=== PATIENT | female | born 1955 | race Caucasian/White ===

== ENCOUNTER 2024-08-14 19:36 | Emergency (ER) | payer OTHER ==
--- OUTSIDE RECORDS SUMMARY | 2024-08-14 19:38 | XMS REPORT | Continuity of Care Document ---
Author Name Unknown Address [address] [facility] [place] [address] [facility] Address [address] [facility] [address] [place] [address] Care Team Providers [facility] Name Role Phone Tomek_T Attending Clinician Unavailable Tomek_T Admitting Clinician Unavailable Payers Payer Name Policy Type Policy Number Effective Date Expirati on Date Source [facility] (MEDICARE REPLACEMENT/ADVANT AGE - HMO) [id number] 2022 00:00:00 Problems Condition Name Condition Details Condition Category Status Onset Date Resolution Date Last Treatment Date Treating Clinician Comments Source Acute exacerbati on of chronic obstructiv e airways disease Acute Exacerbati on of Chronic Obstructiv e Airways Disease Problem Active - 00:00: 00 [facility] Rupture of breast implant Rupture of Breast Implant Problem [facility] Social History Smoking Status Start Date Stop Date Source Heavy Tobacco [facility]oker [facility] Medications Ordered Medication Name Filled Medication Name Start Date Stop Date Current Medication? Ordering Clinician Indication Dosage Frequency Signature (SIG) Comments Components Source Breztri Aerosphere 160 mcg-9mcg-4. 8mcg/actuat ion HFA aerosol inhaler Inhale 2 puffs twice a day by inhalation route as directed for 30 days. Breztri Aerosphere 160 mcg-9mcg-4. 8mcg/actuat ion HFA aerosol inhaler Inhale 2 puffs twice a day by inhalation route as directed for 30 days. No 2puff(s ) BID Breztri Aerosphere 160 mcg-9mcg-4 .8mcg/actu ation HFA aerosol inhaler Inhale 2 puffs twice a day by inhalation route as directed for 30 days. [facility] Levaquin 750 mg tablet Take 1 tablet every day by oral route as directed for 7 days. Levaquin 750 mg tablet Take 1 tablet every day by oral route as directed for 7 days. No 1 Q1D Levaquin 750 mg tablet Take 1 tablet every day by oral route as directed for 7 days. [facility] prednisone 20 mg tablet Take 1 tablet every day by oral route as directed for 5 days. prednisone 20 mg tablet Take 1 tablet every day by oral route as directed for 5 days. No 1 Q1D prednisone 20 mg tablet Take 1 tablet every day by oral route as directed for 5 days. [facility] Vital Signs Vital Name Observation Time Observation Value Comments S ource BP Diastolic 2022-05-01 00:00:00 86 mm[Hg] [facility] Height 2022-05-01 00:00:00 60 [in_i] [facility] BMI (Body Mass Index) 2022-05-01 00:00:00 24.6 kg/m2 [facility] BP Systolic 2022-05-01 00:00:00 135 mm[Hg] [facility] Body Weight 2022-05-01 00:00:00 2018 [oz_av] [facility] Encounters Start Date/Time End Date/Time Encounter Type Admission Type Attending [facility] Care Facility Care Department Encounter ID Source 2022-06-22 00:00:00 2022-06-22 00:00:00 Outpatient Tomek[facility]T [facility] [id number] [facility] 2022-05-01 00:00:00 2022-05-01 00:00:00 Outpatient [facility]ome[facility]T [facility] [id number] [facility] 2022-05-01 00:00:00 2022-05-01 00:00:00 Outpatient Tomek[facility]T [facility] [id number] [facility] 2022-05-01 00:00:00 2022-05-01 00:00:00 Tian Andrews MD: [address] [place] [address] [address], [place] [address] , Ph. [facility] [id number] [facility] 2022-04-29 00:00:00 2022-04-29 00:00:00 Outpatient Tomek_T [facility] [id number] [facility] 2022-04-29 00:00:00 2022-04-29 00:00:00 Outpatient Tomek_T [facility] [id number] [facility] 2022-04-28 00:00:00 2022-04-28 00:00:00 Outpatient Tomek_T [facility] [id number] [facility]
[2024-08-14] MEDS ORDERED: ONDANSETRON 4 MG/2 ML VIAL ONE (20:01)
[2024-08-14] MEDS ORDERED: FENTANYL CITR 100 MCG/2 ML ONE ×2 (20:01→21:45)
--- NOTE | 2024-08-14 20:52 | RAD REPORT ---
Exam:Forearm Right Clinical history: Right forearm pain Findings: Impacted moderately displaced fracture distal radius. Mildly displaced fracture distal ulna. No dislocation seen
[2024-08-14] MEDS ORDERED: NA CHLORIDE 0.9% 1,000 ML ONE (21:35)
[2024-08-14] MEDS ORDERED: MIDAZOLAM HCL 5 ML ONE (21:46)
[2024-08-14] MEDS ORDERED: ETOMIDATE 20 MG/10 ML VIAL IV ONE (21:46)
--- NOTE | 2024-08-14 23:53 | ER ---
Nurse's Notes [facility] Name: Medhat Hill Age: 69 yrs Sex: Female : 1955 Arrival Date: 08/14/2024 Time: 19:36 Bed 5 Private MD: Diagnosis: Impacted moderately displaced fracture distal radius, mildly displaced fracture distal ulna Presentation: 08/14 19:59 Chief complaint: Patient states: I have vertigo really bad and i fell and tried to kd3 catch myself on my right arm and i broke my wrist. The urgent care gave me Tylenol and sent me here. Coronavirus screen: Vaccine status: Patient reports being unvaccinated. Ebola Screen: No symptoms or risks identified at this time. Initial Sepsis Screen: Does the patient meet any 2 criteria? No. Patient's initial sepsis screen is negative. Does the patient have a suspected source of infection? No. Patient's initial sepsis screen is negative. Risk Assessment: Do you want to hurt yourself or someone else? Patient reports no desire to harm self or others. Onset of symptoms was August 14, 2024. 19:59 Method Of Arrival: Ambulatory kd3 19:59 Acuity: RAEANN 3 kd3 Triage Assessment: 20:00 General: Appears uncomfortable, Behavior is calm, cooperative. Pain: Complains of pain kd3 in right wrist. Musculoskeletal: Bony deformity noted of right wrist. Injury Description: fall. Historical: - Allergies: 20:00 PENICILLINS; kd3 20:00 codeine sulfate; kd3 - Immunization history:: Adult Immunizations up to date. - Infectious Disease History:: Denies. - Social history:: Smoking status: Patient reports the use of cigarette tobacco products, smokes one-half pack cigarettes per day. Screenin:14 [facility] ED Fall Risk Assessment (Adult) History of falling in the last 3 months, cm10 including since admission Yes- single mechanical fall (1 pt) Confusion or Disorientation No (0 pts) Intoxicated or Sedated No (0 pts) Impaired Gait No (0 pts) Mobility Assist Device Used No (0 pt) Altered Elimination No (0 pt) Score/Fall Risk Level 0 - 2 = Low Risk Oriented to surroundings, Maintained a safe environment, Hourly rounding (assess needs \T\ fall precautionary measures) done. Abuse screen: Denies threats or abuse. Denies injuries from another. Nutritional screening: No deficits noted. Tuberculosis screening: No symptoms or risk factors identified. Assessment: 20:13 General: Appears uncomfortable, Behavior is crying. Pain: Complains of pain in right cm10 forearm and right wrist Pain currently is 10 out of 10 on a pain scale. Neuro: No deficits noted. Level of Consciousness is awake, alert, obeys commands, Oriented to person, place, time, situation, Appropriate for age. Respiratory: No deficits noted. Airway is patent Respiratory effort is even, unlabored, Respiratory pattern is regular, symmetrical. Musculoskeletal: Bony deformity noted of right wrist. 21:32 General: Pt and the room has been prepped for conscious sedation. baseline EKG kd3 obtained. suction set up and functioning nasal canula and other rescue oxygen delivery devices are ready. Pt has a working IV access. Fluids are pulled and ready at the bedside. . 08/15 00:34 General: Pt has returned to baseline after procedural sedation. See paper charting. PT kd3 stable for D/C, left with her friend. . Vital Signs: 08/14 19:59 BP 100 / 72; Pulse 77; Resp 16; Temp 98.1(O); Pulse Ox 98% on R/A; Weight 56.7 kg; kd3 Height 5 ft. 4 in. ; 21:08 BP 91 / 64; Pulse 79; Resp 19; Pulse Ox 96% on R/A; kd3 22:08 BP 99 / 69; Pulse 85; Resp 19; Pulse Ox 96% on R/A; kd3 23:00 BP 118 / 72; Pulse 74; Resp 16; Pulse Ox 94% on R/A; kd3 08/15 00:02 BP 111 / 67; Pulse 77; Resp 19; Pulse Ox 94% on R/A; kd3 08/14 19:59 Body Mass Index 21.46 (56.70 kg, 162.56 cm) kd3 ED Course: 08/14 19:37 Patient arrived in ED. jj6 19:44 Betty [facility]olejo [facility]C [facility] kb 19:44 Laina Tucker MD is Attending Physician. kb 19:53 Page Marina, [place] is Primary Nurse. cm10 20:00 Triage completed. kd3 20:00 Arm band placed on left wrist. kd3 20:04 Inserted saline lock: 20 gauge in left forearm, using aseptic technique. Flushed with cm10 10 mL NS. 20:14 Patient has correct armband on for positive identification. Bed in low position. Call cm10 light in reach. Side rails up X2. Pulse ox on. NIBP on. 20:28 Forearm Right XRAY In Process Unspecified. EDMS 21:38 Attending Physician role handed off by Laina Tucker MD sp4 21:38 Manuel Hartman MD is Attending Physician. sp4 23:49 Wrist Right 2 View XRAY In Process Unspecified. EDMS 23:52 Mo Garg MD is Referral Physician. kb 08/15 00:35 Provided Education on: Follow up . kd3 00:35 Assist provider with reduction of right wrist using traction, Set up for procedure. kd3 Performed by Manuel Hartman MD Immobilized with sling, Patient tolerated well. 00:35 IV discontinued, intact, bleeding controlled, No redness/swelling at site. Pressure kd3 dressing applied. Administered Medications: 08/14 20:12 Drug: fentaNYL (PF) IVP 25 mcg IVP once Route: IVP; Site: left forearm; cm10 20:12 Drug: Ondansetron IVP 4 mg IVP once; over 2 minutes Route: IVP; Site: left forearm; cm10 21:49 Drug: fentaNYL (PF) IVP 25 mcg IVP once Route: IVP; Site: left forearm; kd3 23:30 Drug: Etomidate IVP 10 mg IVP once Route: IVP; Site: left forearm; kd3 23:31 Drug: Midazolam IVP or IV 5 mg IVP once Route: IVP; Site: left forearm; kd3 23:50 Drug: fentaNYL (PF) IVP 25 mcg IVP once Route: IVP; Site: left forearm; kd3 Medication: 20:14 VIS not applicable for this client. cm10 Outcome: 23:52 Discharge ordered by . erica 08/15 00:35 Discharged to home via wheelchair, with friend, kd3 Condition: stable Discharge instructions given to patient, friend, Instructed on discharge instructions, follow up and referral plans. medication usage, Demonstrated understanding of instructions, follow-up care, medications, Prescriptions given X 2, 00:36 Patient left the ED. kd3 Signatures: Dispatcher [employer] EDMS Betty Marmolejo [employer]IC[employer]-C SPR[employer]ER INSE[employer]-Ckb Leslie Sun jj6 Angelica Cabrera, RN RN kd3 Manuel Hartman MD MD sp4 Page Marina RN RN cm10 Corrections: (The following items were deleted from the chart) 08/14 23:53 23:53 fentaNYL (PF) IVP 25 mcg IVP in left forearm kd3 kd3
--- NOTE | 2024-08-14 23:53 | EDPHYS ---
Physician Documentation [facility] Name: Medhat Hill Age: 69 yrs Sex: Female : 1955 Arrival Date: 08/14/2024 Time: 19:36 Bed 5 Private MD: ED Physician Manuel Hratman HPI: 08/14 20:06 This 69 yrs old Female presents to ER via Ambulatory with complaints of Wrist Injury. kb 20:06 Pt is a 69 year old female who presents for right wrist pain after falling onto kb outstretched hand. States she has vertigo and it caused her to fall. Reports the vertigo is something she has dealt with for a long time and it is normal for her. Denies any other injuries. . Historical: - Allergies: 20:00 PENICILLINS; kd3 20:00 codeine sulfate; kd3 - Immunization history:: Adult Immunizations up to date. - Infectious Disease History:: Denies. - Social history:: Smoking status: Patient reports the use of cigarette tobacco products, smokes one-half pack cigarettes per day. ROS: 20:08 Constitutional: As per HPI kb Exam: 20:08 Constitutional: This is a well developed, well nourished patient who is awake, alert, kb and in no acute distress. Head/Face: Normocephalic, atraumatic. ENT: Moist Mucous membranes Cardiovascular: Regular rate Respiratory: Respirations even and unlabored. No increased work of breathing. Talking in full sentences Skin: Warm, dry with normal turgor. Normal color. Neuro: Awake and alert, GCS 15, oriented to person, place, time, and situation. 20:08 Musculoskeletal/extremity: Extremities: grossly normal except: noted in the right forearm: decreased ROM, deformity, pain, swelling, tenderness, ROM: limited active range of motion, limited passive range of motion, limited active range of motion due to pain, limited passive range of motion due to pain, Circulation is intact in all extremities. Sensation intact. Vital Signs: 19:59 BP 100 / 72; Pulse 77; Resp 16; Temp 98.1(O); Pulse Ox 98% on R/A; Weight 56.7 kg; kd3 Height 5 ft. 4 in. ; 21:08 BP 91 / 64; Pulse 79; Resp 19; Pulse Ox 96% on R/A; kd3 22:08 BP 99 / 69; Pulse 85; Resp 19; Pulse Ox 96% on R/A; kd3 23:00 BP 118 / 72; Pulse 74; Resp 16; Pulse Ox 94% on R/A; kd3 08/15 00:02 BP 111 / 67; Pulse 77; Resp 19; Pulse Ox 94% on R/A; kd3 08/14 19:59 Body Mass Index 21.46 (56.70 kg, 162.56 cm) 3 MDM: 08/14 19:45 Medical Screening Exam initiated kb 20:09 Differential diagnosis: dislocation, closed fracture. Data reviewed: vital signs, kb nurses notes. 22:53 Management of patient was discussed with the following: Dr Calhoun, who will perform kb conscious sedation and reduction . 23:52 Historians other than the Patient: Family Member: family. Counseling: I had a detailed kb discussion with the patient and/or guardian regarding the historical points, exam findings, and any diagnostic results supporting the discharge/admit diagnosis, radiology results, the need for outpatient follow up, a orthopedic surgeon, to return to the emergency department if symptoms worsen or persist or if there are any questions or concerns that arise at home. 23:53 Independent interpretation of the following test(s) in the Emergency Department X-Ray: kb My interpretation is displaced fracture of ulna and radius. 23:54 Independent interpretation of the following test(s) in the Emergency Department X-Ray: kb My interpretation is repeat xray shows improved alignment. 08/14 19:54 Order name: Forearm Right XRAY; Complete Time: 20:56 kb 08/14 23:34 Order name: Wrist Right 2 View XRAY [facility] 08/14 19:54 Order name: IV Start; Complete Time: 20:04 kb 08/14 21:39 Order name: Moderate Sedation; Complete Time: 23:53 sp4 08/14 21:39 Order name: Splint; Complete Time: 23:54 sp4 08/14 23:51 Order name: Sugar Tong Forearm Splint; Complete Time: 23:53 kb 08/14 23:51 Order name: Sling; Complete Time: 00:01 kb Administered Medications: 20:12 Drug: fentaNYL (PF) IVP 25 mcg IVP once Route: IVP; Site: left forearm; cm10 20:12 Drug: Ondansetron IVP 4 mg IVP once; over 2 minutes Route: IVP; Site: left forearm; cm10 21:49 Drug: fentaNYL (PF) IVP 25 mcg IVP once Route: IVP; Site: left forearm; kd3 23:30 Drug: Etomidate IVP 10 mg IVP once Route: IVP; Site: left forearm; kd3 23:31 Drug: Midazolam IVP or IV 5 mg IVP once Route: IVP; Site: left forearm; kd3 23:50 Drug: fentaNYL (PF) IVP 25 mcg IVP once Route: IVP; Site: left forearm; kd3 Disposition: 08/15 20:20 Co-signature as Attending Physician, Manuel Hartman MD I agree with the assessment sp4 and plan of care. I reviewed the patient's care provided by the Advanced Practice Provider and agree with the diagnosis and treatment plan. Disposition Summary: 08/14/24 23:52 Discharge Ordered Notes: Location: Home kb Condition: Stable kb Diagnosis - Impacted moderately displaced fracture distal radius, mildly displaced fracture kb distal ulna Followup: kb - With: Emergency Department - When: As needed - Reason: Worsening of condition Followup: kb - With: Private Physician - When: 2 - 3 days - Reason: Recheck today's complaints, Continuance of care, Re-evaluation by your physician Followup: kb - With: Mo Garg MD - When: 2 - 3 days - Reason: Recheck today's complaints Discharge Instructions: - Discharge Summary Sheet kb - Radial Fracture kb - Ulnar Fracture kb Forms: - Medication Reconciliation Form kb - Antibiotic Education kb - Prescription Opioid Use kb - Patient Portal Instructions kb - Leadership Thank You Letter kb Prescriptions: - Cyclobenzaprine 10 mg Oral tablet - take 1 tablet ORAL route every 8 hours As needed; 21 tablet; Refills: 0, kb Product Selection Permitted - Diclofenac Sodium 75 mg Oral tablet, delayed release (enteric coated) - take 1 tablet ORAL route 2 times per day As needed; 30 tablet; Refills: 0, kb Product Selection Permitted Signatures: Dispatcher [employer] Betty Adan FNP-C FNP-Ckb Doucette, Kyli RN RN kd3 Manuel Hartman MD MD sp4 Page Marina RN RN cm10 Corrections: (The following items were deleted from the chart) 08/14 23:34 23:34 Wrist Right 2 View+[email or web address] ordered. EDMS EDMS
[2024-08-15 00:54] VITALS: TEMP 98.1
[2024-08-15 01:06] VITALS: O2SAT 94
[2024-08-15 01:08] VITALS: BP 111/67
--- NOTE | 2024-08-15 04:43 | RAD REPORT ---
CLINICAL HISTORY: After reduction. COMPARISON: None. TECHNIQUE: XR WRIST 1-2 VIEWS RIGHT 08/14/2024 11:34 PM CDT FINDINGS: There are minimally displaced fractures of the distal metaphyses of the ulna and radius. Joint spaces are preserved. There is moderate distal forearm soft tissue swelling. IMPRESSION: Distal forearm fractures. Electronically signed by: Kwesi Vasquez MD 08/15/2024 12:29 AM CDT RP Due to temporary technical issues with the [employer]ACS/[employer] reporting system, reports are being johnnie d by the in-house radiologist without review as a courtesy to ensure prompt reporting the interpreting radiologist is fully responsible for the content of the report. Transcribed Date/Time: 08/15/2024 4:42 AM
--- NOTE | 2024-08-16 12:40 | EKG ---
Test Date: 2024-08-14 Test Time: 21:25:41 Gang Rider: SOLO MEASUREMENT RESULTS: Intervals: Rate: 76 AK: 146 QRSD: 62 QT: 354 QTc: 398 Glover: P: 43 AK: 146 QRS: 36 T: 10 INTERPRETIVE STATEMENTS: Normal sinus rhythm Low voltage QRS Borderline ECG Compared to ECG 06/05/2013 07:40:21 Low QRS voltage now present Electronically Signed On 08-16-24 12:36:58 CDT by Marcial Kunz
== END 2024-08-15 00:36 | disposition home or self-care (01) ==
LOC: ER 19:36
DX: S52.601A Unspecified fracture of lower end of right ulna, initial encounter for closed fracture (principal); S52.501A Unspecified fracture of the lower end of right radius, initial encounter for closed fracture; W18.30XA Fall on same level, unspecified, initial encounter; F17.210 Nicotine dependence, cigarettes, uncomplicated
CPT/HCPCS: 93005; 73090; 73100; 96375; 96374; 99285; 25605; J2250; J3010 ×2; J2405; J7030